=== PATIENT | female | born 2000 | race Caucasian/White ===

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

== ENCOUNTER 2023-09-02 02:12 | Emergency (ER) | payer OTHER ==
[2023-09-02 02:19] VITALS: BP 125/85; PULSE 92; RESP 16; TEMP 98.2; BMI 31.6
== END 2023-09-02 02:38 | disposition home or self-care (01) ==
LOC: JER 02:12
DX: H92.01 Otalgia, right ear (principal)
CPT/HCPCS: 99282-25